=== PATIENT | male | born 1955 | race Caucasian/White ===

== ENCOUNTER 2018-09-14 08:21 | Emergency (ER) | payer OTHER ==
[~2018-09-14] VITALS: Ht 167.6 cm; Wt 109.9 kg
[2018-09-14 08:25] VITALS: BP 141/71; PULSE 70; RESP 20; Ht 167.6 cm; Wt 109.9 kg
[2018-09-14] MEDS ORDERED: predniSONE 20 MG TAB PO ONE (09:00)
[2018-09-14] MEDS ORDERED: DIPHENHYDRAMINE 50 MG INJ IM ONE (09:00)
[2018-09-14] MEDS ORDERED: FAMOTIDINE 20 MG TAB PO ONE (09:00)
--- NOTE | 2018-09-14 09:39 | ERD ---
ER Documentation Chief Complaint Chief Complaint Complains of generalized rash to the body x 2 days HPI 62-year-old male presents with urticaria on his lower abdomen and legs bilaterally. Rash started yesterday . Patient also stated that he had a little bit of difficulty breathing this morning denies any current difficulty breathing. Patient denies any allergies. Patient denies using new medications, soaps, eating new foods, etc. Patient denies wheezing, shortness of breath, nausea, vomiting, diarrhea, lightheadedness, angioedema, or tongue swelling. Denies allergies. Past medical history of heart disease. Denies surgeries. Denies social. ROS All systems reviewed and are negative except as per history of present illness. Medications Home Meds Active Scripts Prednisone* (Prednisone*) 20 Mg Tab, 40 MG PO DAILY for allergies for 5 Days, #10 TAB 0 Refills Prov:DARRION OSEI 09/14/18 Diphenhydramine Hcl* (Benadryl*) 50 Mg Cap, 50 MG PO Q6H PRN for ITCHING/RASH, #30 CAP 0 Refills Prov:DARRION OSEI 09/14/18 Allergies Allergies: Coded Allergies: No Known Allergy (Unverified , 09/14/18) PMhx/Soc History of Surgery: Yes (Cardiac stents) Anesthesia Reaction: No Hx Cardiac Disorders: Yes (HTN, Hyperlipidemia) Hx Alcohol Use: No Hx Substance Use: No Hx Tobacco Use: No Smoking Status: Never smoker FmHx Family History: coronary disease; No diabetes, No other Physical Exam Vitals Vital Signs Date Temp Pulse Resp B/P (MAP) Pulse Ox O2 O2 Flow FiO2 Time Delivery Rate 09/14/18 98.6 70 20 141/71 96 08:25 (94) Physical Exam General: Well developed, well nourished. No acute distress. Head: Atraumatic. No sinus tenderness to palpation. Eyes: No icterus, lesions, injection, or edema. Throat: No tonsillar erythema, edema, or exudates noted bilaterally. No masses, lesions, or abscesses noted. Uvula midline. Airway patent. Mouth: Mucus membranes moist. No drooling, ulcers, bleeding, or lesions, noted. Heart: RR w/o murmur, rubs, or gallopsNeck: No lymphadenopathy noted. Tracheal midline, no goiter or nodules noted. No JVD. . Lungs: Clear to auscultation bilaterally w/o wheezes, crackles, rhonchi. Symmetric rise and fall. Equal breath sounds. Skin: Erythematous urticaria over the lower abdomen and legs bilaterally. Psych: Normal mood and affect. Results 24 hrs Current Medications Medications Dose Sig/Figueroa Start Time Status Last (Trade) Ordered Route PRN Stop Time Admin Dose Reason Admin 50 mg ONCE ONCE 09/14/18 DC 09/14/18 Diphenhydrami IM 09:00 09:11 ne HCl 09/14/18 (Benadryl) 09:05 Famotidine 40 mg ONCE ONCE 09/14/18 DC 09/14/18 (Pepcid) PO 09:00 09:11 09/14/18 09:05 Prednisone 60 mg ONCE ONCE 09/14/18 DC 09/14/18 (Prednisone) PO 09:00 09:11 09/14/18 09:05 Procedures/MDM ER Course: Administered Benadryl IM, pepcid, and oral steroids. MDM: 62-year-old male presents with urticaria on his lower abdomen and legs bilaterally. Rash started yesterday . Patient also stated that he had a little bit of difficulty breathing this morning denies any current difficulty breathing. Patient denies any allergies. Patient denies using new medications, soaps, eating new foods, etc. Patient denies wheezing, shortness of breath, nausea, vomiting, diarrhea, lightheadedness, angioedema, or tongue swelling. Low suspicion for anaphylactic shock, airway occlusion, or other emergent problem based on patient history and physical exam. Patient is ambulatory, breathing normally, and stable in the ER. Patient responded well to treatment and has no signs of difficult respiration or hypotension. Patient discharged with prescription for Benadryl and prednisone. Patient discharged with strict ER precautions. Patient advised to follow up with PMD. All questions answered at discharge. Departure Diagnosis: Primary Impression: Allergic reaction Encounter type: initial encounter Qualified Codes: T78.40XA - Allergy, unspecified, initial encounter Additional Impression: Rash Condition: Stable DARRION OSEI Sep 14, 2018 09:39
[2018-09-14] MEDS ORDERED: PRED20TA PO ×2 (09:44→09:45)
[2018-09-14] MEDS ORDERED: BEN50 PO (09:44)
== END 2018-09-14 10:02 | disposition home or self-care (01) ==
LOC: FTE 08:21
DX: L50.0 Allergic urticaria (principal); I10 Essential (primary) hypertension; Z98.61 Coronary angioplasty status
CPT/HCPCS: J1200; J7512; Z7610; 96372